=== PATIENT | female | born 1940 | race Caucasian/White ===

== ENCOUNTER 2018-02-26 15:50 | Emergency (ER) | payer OTHER ==
[~2018-02-26] VITALS: Ht 154.9 cm; Wt 93.0 kg
[2018-02-26 16:01] VITALS: Ht 154.9 cm; Wt 93.0 kg
[2018-02-26 17:00] VITALS: BP 165/95
== END 2018-02-26 17:00 | disposition home or self-care (01) ==
LOC: ED 15:50
DX: S61.411A Laceration without foreign body of right hand, initial encounter (principal); I10 Essential (primary) hypertension; M19.90 Unspecified osteoarthritis, unspecified site; W20.8XXA Other cause of strike by thrown, projected or falling object, initial encounter; Y93.89 Activity, other specified; Y92.89 Other specified places as the place of occurrence of the external cause; Y99.8 Other external cause status
CPT/HCPCS: 90715; J2001

== ENCOUNTER 2018-02-28 09:31 | Emergency (ER) | payer OTHER ==
[~2018-02-28] VITALS: Ht 162.6 cm; Wt 93.0 kg
[2018-02-28 09:37] VITALS: Ht 162.6 cm; Wt 93.0 kg
[2018-02-28 10:14] VITALS: BP 151/86
== END 2018-02-28 10:14 | disposition home or self-care (01) ==
LOC: ED 09:31
DX: S61.411D Laceration without foreign body of right hand, subsequent encounter (principal); I10 Essential (primary) hypertension; M19.90 Unspecified osteoarthritis, unspecified site; X58.XXXD Exposure to other specified factors, subsequent encounter

== ENCOUNTER 2018-03-08 08:56 | Emergency (ER) | payer OTHER ==
[~2018-03-08] VITALS: Ht 157.5 cm; Wt 93.2 kg
[2018-03-08 09:00] VITALS: BP 141/85
== END 2018-03-08 09:26 | disposition home or self-care (01) ==
LOC: ED 08:56
DX: S61.411D Laceration without foreign body of right hand, subsequent encounter (principal); X58.XXXD Exposure to other specified factors, subsequent encounter